=== PATIENT | male | born 1930 | race African-American/Black ===

== ENCOUNTER 2019-10-02 17:27 | Inpatient (IN) | payer BC ==
[~2019-10-02] VITALS: Ht 167.6 cm; Wt 71.3 kg
[~2019-10-02 17:27] MED LIST: ASPI81TA85 PO; CIPR-249 PO; FISH7.5C PO; FOSI40TA3 PO; HYDR12.55 PO; LATA0.0013 OS; NATUSOL OU; OMEP1CAP73 PO; POTA10TA67 PO; TYLE325T5 PO; XALA0.007 OU
[2019-10-02] MEDS ORDERED: CARV25TA PO (17:40)
[2019-10-02] MEDS ORDERED: NITR100C2 PO (17:40)
[2019-10-02] MEDS ORDERED: COMB0.2S OU (17:40)
[2019-10-02 18:24] LABS: BASO % 0.3 % (0.0-1.0); EOS % 0.6 % (0.0-3.0); HEMATOCRIT 41.4 % (42.0-52.0); HEMOGLOBIN 13.3 g/dl (13.5-17.5); LYMPH # 1.1 10^3/uL (1.5-5.0); LYMPH % 16.3 % (24.0-44.0); MEAN CORPUSCULAR HEMOGLOBIN 26.7 pg (27.0-33.0); MEAN CORPUSCULAR HGB CONC 32.1 g/dl (32.0-36.5); MEAN CORPUSCULAR VOLUME 83.1 fl (80.0-96.0); MONO # 0.6 10^3/uL (0.0-0.8); MONO % 8.3 % (0.0-5.0); NEUTROPHILS % 74.1 % (36.0-66.0); PLATELET COUNT, AUTOMATED 143 10^3/uL (150-450); RED BLOOD COUNT 4.98 10^6/uL (4.30-6.10); WHITE BLOOD COUNT 6.8 10^3/uL (4.0-10.0)
--- NOTE | 2019-10-02 18:49 | REP ---
Clinical: Bilateral lower extremity edema. Technique: PA and lateral. Comparison: 08/26/2014. Findings: Mild cardiomegaly with early CHF including indistinct pulmonary vasculature, cephalization, increased interstitial markings, bibasilar atelectasis and small pleural effusions. No pneumothorax. Skeletal structures intact. Impression: Findings compatible with early CHF. Electronically Signed by Jason Mancuso MD 10/02/2019 06:41 P
[2019-10-02 18:54] LABS: ALBUMIN 3.5 GM/DL (3.2-5.2); ALT/SGPT 111 U/L (12-78); BILIRUBIN,DIRECT 0.4 MG/DL (0.0-0.2); BLOOD UREA NITROGEN 15 MG/DL (7-18); CALCIUM LEVEL 8.6 MG/DL (8.8-10.2); CARBON DIOXIDE LEVEL 25 MEQ/L (21-32); CHLORIDE LEVEL 109 MEQ/L (98-107); CK-MB VALUE MASS 3.8 NG/ML (<3.6); CPK CREATINE PHOSPHOKINASE 306 U/L (39-308); CREATININE FOR GFR 1.32 MG/DL (0.70-1.30); GLOMERULAR FILTRATION RATE > 60.0 (>35); GLUCOSE, FASTING 130 MG/DL (70-100); LIPASE 113 U/L (73-393); MB/CK RELATIVE INDEX 1.24 (< OR =4); NT-PRO BNP 7414 PG/ML (<450); POTASSIUM SERUM 4.2 MEQ/L (3.5-5.1); SODIUM LEVEL 140 MEQ/L (136-145); TOTAL PROTEIN 6.8 GM/DL (6.4-8.2); TROPONIN I 0.03 NG/ML (< 0.10)
[2019-10-02] MEDS ORDERED: FUROSEMIDE 40MG/4ML VIAL (J1940) IV ONE (19:15)
[2019-10-02] MEDS ORDERED: ACET500T15 PO (19:41)
[2019-10-02 21:09] LABS: CK-MB VALUE MASS 3.7 NG/ML (<3.6); MB/CK RELATIVE INDEX 1.22 (< OR =4); TROPONIN I 0.03 NG/ML (< 0.10)
--- NOTE | 2019-10-02 21:14 | HPEPDOC ---
General Date of Admission 10/02/19 Date of Service: Oct 02, 2019 Chief Complaint The patient is a 89-year-old male admitted with a reason for visit of Urinary Problem. Source: Patient History of Present Illness 89 year old male presented to the ED with 4 days history of increasing SOB and bilateral leg swelling. He felt initially increasing soreness of both the legs up to the Knee and then noticed the swelling. At the same time he was having SOB moving about his apartment along with orthopnea, some cough on laying down flat and decreased urine output. He was found to have elevated pro BNP, CXR compatable with early CHF. He was admitted for Systolic CHF exacerbation. Home Medications Scheduled Aspirin (Aspir 81) 81 Mg Tab, 81 MG PO DAILY, (Reported) Brimonidine Tartrate/Timolol (Combigan 0.2%-0.5% Eye Drops) 5 Ml Drops, 1 DROP OU BID, (Reported) Carvedilol (Carvedilol) 25 Mg Tablet, 12.5 MG PO BID, (Reported) Fosinopril Sodium (Fosinopril Sodium) 40 Mg Tab, 40 MG PO DAILY, (Reported) Nitrofurantoin Monohyd/M-Cryst (Nitrofurantoin [place]-Mcr 100 mg) 100 Mg Capsule, 100 MG PO BID, (Reported) FOR 7 DAYS, FILLED 09/24 Scheduled PRN Acetaminophen (Acetaminophen) 500 Mg Tablet, 500 MG PO Q6H PRN for PAIN, (Reported) Allergies Coded Allergies: No Known Allergies (Unverified , 10/02/19) Past Medical History Medical History systolic CHF EF of 20% Tricuspid regurgitation Glaucoma with bilateral blindness Hypertension Hyperlipidemia 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 Surgical History Appendectomy Cholecystectomy Family History Mother and Father due to old age, Sister brain tumor Social History * Smoker: Denies Alcohol: occationally Drugs: denies A-FIB/CHADSVASC A-FIB History Current/History of A-Fib/PAF?: No Review of Systems Constitutional: Denies: Chills, Fever, Night Sweats Eyes: Reports: Other (blindness); Denies: Pain, Vision change ENT: Denies: Head Aches, Ear Pain, Dysphagia Skin: Denies: Rash, Lesions, Breakdown Pulmonary: Reports: Dyspnea, Cough Cardiovascular: Reports: Orthopnea, Edema Gastrointestinal: Denies: Nausea, Vomiting, Abdominal Pain, Diarrhea Genitourinary: Reports: Dysuria, Other Symptoms (decreased urination); Denies: Frequency, Incontinence, Retention Hematologic: Denies: Bruising, Bleeding Excessively Musculoskeletal: Reports: Foot Pain, Joint Pain Physical Examination General Exam: Positive: Alert, Cooperative, No Acute Distress Eye Exam: Positive: Conjunctiva & lids normal ENT Exam: Positive: Atraumatic, Mucous membr. moist/pink, Pharynx Normal Neck Exam: Positive: Supple, JVD Chest Exam: Positive: Normal air movement, Other (bilateral basal crackles) Heart Exam: Positive: Rate Normal, Normal S1, Normal S2, Murmurs (soft systolic murmur) Telemetry: Positive: Other Telemetry: (Bigemini rhythm) Abdomen Exam: Positive: Normal bowel sounds, Soft; Negative: Tenderness, Hepatospenomegaly Extremity Exam: Positive: Edema; Negative: Clubbing, Cyanosis Skin Exam: Positive: Nl turgor and temperature; Negative: Breakdown, Lesion Neuro Exam: Positive: Normal Speech, Strength at 5/5 X4 ext, Normal Tone Vital Signs Vital Signs Date Time Temp Pulse Resp B/P (MAP) Pulse Ox O2 Delivery O2 Flow Rate FiO2 10/02/19 20:12 86 96 10/02/19 19:17 179/98 (125) 10/02/19 17:54 97.4 24 Room Air Laboratory Data Labs 24H Laboratory Tests 2 10/02/19 18:10: Immature Granulocyte % (Auto) 0.4, Neutrophils (%) (Auto) 74.1H, Lymphocytes (%) (Auto) 16.3L, Monocytes (%) (Auto) 8.3H, Eosinophils (%) (Auto) 0.6, Basophils (%) (Auto) 0.3, Neutrophils # (Auto) 5.0, Lymphocytes # (Auto) 1.1L, Monocytes # (Auto) 0.6, Eosinophils # (Auto) 0.0, Basophils # (Auto) 0.0, Nucleated Red Blood Cells % (auto) 0.0, Anion Gap 6L, Glomerular Filtration Rate > 60.0, Calcium Level 8.6L, Total Bilirubin 2.0H, Direct Bilirubin 0.4H, Aspartate Amino Transf (AST/SGOT) 31, Alanine Aminotransferase (ALT/SGPT) 111H, Alkaline Phosphatase 78, Total Creatine Kinase 306, Creatine Kinase MB 3.8H, Creatine Kinase MB Relative Index 1.24, Troponin I 0.03, RS-Agu-M-Type Natriuretic Peptide 7414H, Total Protein 6.8, Albumin 3.5, Albumin/Globulin Ratio 1.1, Lipase 113 10/02/19 20:26: CBC/BMP Laboratory Tests 10/02/19 18:10 Assessment/Plan 89 year old male presented to the ED with 4 days history of increasing SOB and bilateral leg swelling. He felt initially increasing soreness of both the legs up to the Knee and then noticed the swelling. At the same time he was having SOB moving about his apartment along with orthopnea, some cough on laying down flat and decreased urine output. He was found to have elevated pro BNP, CXR compatibl e with early CHF. He was admitted for Systolic and diastolic CHF exacerbation. Systolic and Diastolic CHF exacerbation lasix IV , 2 gm sodium diet, fluid restriction 1.5 liters. I/O, daily weights Last echo in 2014 EF was 20%, Grade 3 diastolic dysfunction, moderately severe mitral regurgitation. New Echo ordered. Follows with Dr David. Continue betablocker and ACEI. CKD creatinine at baseline will continue to monitor. Hypertension continue fosinopril at lower dose to allow for aggressive diuresis continue coreg Glaucoma with bilateral blindness. Recent UTI treated with nitrofurantoin today was last day. Plan / VTE VTE Prophylaxis Ordered?: Yes MERCED STRINGER MD Oct 02, 2019 21:14
[2019-10-02 23:43] VITALS: BP 158/102
[2019-10-02] MEDS: CARVedilol 12.5 MG TAB PO SCH (23:43)
[2019-10-03] MEDS ORDERED: FUROSEMIDE 40MG/4ML VIAL (J1940) IV SCH (02:00)
[2019-10-03 04:00] VITALS: BP 150/95
[2019-10-03 04:59] LABS: BASO % 0.3 % (0.0-1.0); EOS % 0.5 % (0.0-3.0); HEMATOCRIT 44.1 % (42.0-52.0); HEMOGLOBIN 14.2 g/dl (13.5-17.5); LYMPH # 1.2 10^3/uL (1.5-5.0); LYMPH % 19.5 % (24.0-44.0); MEAN CORPUSCULAR HEMOGLOBIN 26.5 pg (27.0-33.0); MEAN CORPUSCULAR HGB CONC 32.2 g/dl (32.0-36.5); MEAN CORPUSCULAR VOLUME 82.4 fl (80.0-96.0); MONO # 0.6 10^3/uL (0.0-0.8); MONO % 9.9 % (0.0-5.0); NEUTROPHILS # 4.3 10^3/uL (1.5-8.5); NEUTROPHILS % 69.5 % (36.0-66.0); PLATELET COUNT, AUTOMATED 155 10^3/uL (150-450); RED BLOOD COUNT 5.35 10^6/uL (4.30-6.10); WHITE BLOOD COUNT 6.2 10^3/uL (4.0-10.0)
[2019-10-03 05:20] LABS: BLOOD UREA NITROGEN 15 MG/DL (7-18); CALCIUM LEVEL 8.7 MG/DL (8.8-10.2); CARBON DIOXIDE LEVEL 31 MEQ/L (21-32); CHLORIDE LEVEL 105 MEQ/L (98-107); CREATININE FOR GFR 1.35 MG/DL (0.70-1.30); GLOMERULAR FILTRATION RATE > 60.0 (>35); GLUCOSE, FASTING 97 MG/DL (70-100); POTASSIUM SERUM 3.5 MEQ/L (3.5-5.1); SODIUM LEVEL 143 MEQ/L (136-145)
--- NOTE | 2019-10-03 06:38 | ECGEPIP ---
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
[2019-10-03 08:00] VITALS: BP 150/85
[2019-10-03] MEDS: FOSINOPRIL 20 MG TAB PO SCH (09:00)
[2019-10-03] MEDS: ENOXAPARIN 30MG/0.3ML SYRINGE (J1650 PER 10MG) SC SCH (09:54)
[2019-10-03] MEDS: ASPIRIN 81 MG ENTERIC TAB PO SCH (09:54)
[2019-10-03] MEDS: CARVedilol 12.5 MG TAB PO SCH ×2 (09:54→20:54)
[2019-10-03 12:00] VITALS: BP 118/73
[2019-10-03] MEDS: FUROSEMIDE 40MG/4ML VIAL (J1940) IV SCH (14:29)
[2019-10-03 16:00] VITALS: BP 123/79
--- NOTE | 2019-10-03 19:43 | IPNPDOC ---
Date Seen The patient was seen on 10/03/19. Progress Note SUBJECTIVE: Echo to be done today. Denies increased SOB, -3L as of this AM since midnight, decreased lasix dose. Denies chest pain, n/v/d. OBJECTIVE: VITAL SIGNS: Please see below PHYSICAL EXAMINATION: CONSTITUTIONAL: Legally blind, no acute distress, resting comfortably, AAO x 3 EYES: PERRLA, EOM intact HENT, MOUTH: Normocephalic, atraumatic, moist mucous membranes NECK: SUPPLE, no JVD, no lymphadenopathy, no carotid bruit CV: Regular rate and rhythm, S1S2 normal, no murmurs/rubs/gallops RESPIRATORY: Crackles in bilateral lower lung bond, no rales/rhonchi/wheezes GI: BS positive in 4 quadrants, soft, nontender, nondistended, no rebound or guarding, no organomegaly : Deferred MUSCULOSKELETAL: Normal ROM. No cyanosis, clubbing, swelling, joint deformity, +1 pitting extremity edema INTEGUMENTARY: Intact, no rashes, no lesions, no erythema NEUROLOGIC: Cranial Nerves II-XII are intact, no focal deficits PSYCHIATRIC: Mood and affect are normal CURRENT MEDICATIONS: Please see below LABORATORY DATA: Please see below IMAGING: Echo pending ASSESSMENT: 89 y/o M treated for acute CHF exacerbation. PLAN: 1. Acute CHF exacerbation, type unknown. Echo pending. C/w IV lasix Q12 hrs, 2 gm sodium diet, fluid restriction 1.5 liters, I/O, daily weights. 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 Continue beta scooby and ACEI, tele 2. CKD. Creatinine slightly elevated this AM but not LA NENA. Continue to monitor closely. 3. Hypertension. Stable. C/w fosinopril at lower dose to allow for aggressive d iuresis, coreg 4. Glaucoma with bilateral blindness. Stable. 5. Recent UTI. Treated with nitrofurantoin, 10/02/19 was last day. 6. DVT px. Enoxaparin SC daily. DISPOSITION: Admitted under inpatient status. Plan is discharge back to prior living situation. VS, I&O, 24H, Fishbone Vital Signs/I&O Vital Signs Date Time Temp Pulse Resp B/P (MAP) Pulse Ox O2 Delivery O2 Flow Rate FiO2 10/03/19 16:00 97.6 73 18 123/79 (94) 95 Room Air I&O- Last 24 Hours up to 6 AM 10/03/19 06:00 Intake Total 120 ml Output Total 3175 ml Balance -3055 ml Laboratory Data 24H LABS Laboratory Tests 2 10/02/19 20:26: Total Creatine Kinase 303, Creatine Kinase MB 3.7H, Creatine Kinase MB Relative Index 1.22, Troponin I 0.03 10/02/19 23:20: Methicillin-Resist S.aureus DNA PCR NOT DETECTED 10/03/19 04:43: Immature Granulocyte % (Auto) 0.3, Neutrophils (%) (Auto) 69.5H, Lymphocytes (%) (Auto) 19.5L, Monocytes (%) (Auto) 9.9H, Eosinophils (%) (Auto) 0.5, Basophils (%) (Auto) 0.3, Neutrophils # (Auto) 4.3, Lymphocytes # (Auto) 1.2L, Monocytes # (Auto) 0.6, Eosinophils # (Auto) 0.0, Basophils # (Auto) 0.0, Nucleated Red Blood Cells % (auto) 0.0, Anion Gap 7L, Glomerular Filtration Rate > 60.0, Calcium Level 8.7L, Magnesium Level 2.0 CBC/BMP Laboratory Tests 10/03/19 04:43 Current Medications Current Medications Medications (Trade) Dose Ordered Sig/Erin Route PRN Reason Start Time Stop Time Status Last Admin Dose Admin Aspirin (Ecotrin) 81 mg DAILY PO 10/03/19 09:00 10/03/19 09:54 Carvedilol (COReg) 12.5 mg BID PO 10/02/19 21:00 10/03/19 09:54 Enoxaparin Sodium (Lovenox) 30 mg DAILY SC 10/03/19 09:00 10/03/19 09:54 Fosinopril Sodium (Monopril) 20 mg DAILY PO 10/03/19 09:00 Furosemide (LASIX injection) 40 mg Q12H IV 10/03/19 14:00 10/03/19 14:29 Furosemide (LASIX injection) 40 mg Q8H IV 10/03/19 02:00 10/03/19 08:09 DC 10/03/19 02:18 Home Med (Med Rec Complete!) ASDIRECTED XX 10/02/19 19:45 10/02/19 19:43 DC Allergies Coded Allergies: No Known Allergies (Unverified , 10/02/19) Hilary Navarro MD Oct 03, 2019 19:43
[2019-10-03 20:00] VITALS: BP 122/69
[2019-10-04] VITALS: BP 131/77
[2019-10-04] MEDS: FUROSEMIDE 40MG/4ML VIAL (J1940) IV SCH ×2 (01:20→08:40)
[2019-10-04 04:00] VITALS: BP 137/85
[2019-10-04 06:12] LABS: BASO % 0.4 % (0.0-1.0); EOS # 0.1 10^3/uL (0.0-0.5); EOS % 1.6 % (0.0-3.0); HEMATOCRIT 44.9 % (42.0-52.0); HEMOGLOBIN 14.7 g/dl (13.5-17.5); LYMPH # 1.2 10^3/uL (1.5-5.0); LYMPH % 23.7 % (24.0-44.0); MEAN CORPUSCULAR HEMOGLOBIN 27.2 pg (27.0-33.0); MEAN CORPUSCULAR HGB CONC 32.7 g/dl (32.0-36.5); MONO # 0.6 10^3/uL (0.0-0.8); MONO % 11.8 % (0.0-5.0); NEUTROPHILS # 3.1 10^3/uL (1.5-8.5); NEUTROPHILS % 62.3 % (36.0-66.0); PLATELET COUNT, AUTOMATED 147 10^3/uL (150-450); RED BLOOD COUNT 5.41 10^6/uL (4.30-6.10); WHITE BLOOD COUNT 4.9 10^3/uL (4.0-10.0)
[2019-10-04 06:35] LABS: CALCIUM LEVEL 8.5 MG/DL (8.8-10.2); CREATININE FOR GFR 1.47 MG/DL (0.70-1.30); GLOMERULAR FILTRATION RATE 58.5 (>35); POTASSIUM SERUM 3.4 MEQ/L (3.5-5.1)
[2019-10-04 08:00] VITALS: BP 152/83
[2019-10-04] MEDS ORDERED: POTASSIUM CHLORIDE 10 MEQ SR TABLET PO ONE (08:30)
[2019-10-04] MEDS: ASPIRIN 81 MG ENTERIC TAB PO SCH (08:38)
[2019-10-04] MEDS: FOSINOPRIL 20 MG TAB PO SCH (08:39)
[2019-10-04] MEDS: CARVedilol 12.5 MG TAB PO SCH ×2 (08:39→20:23)
[2019-10-04] MEDS: ENOXAPARIN 30MG/0.3ML SYRINGE (J1650 PER 10MG) SC SCH (08:40)
[2019-10-04] MEDS ORDERED: MIRALAX *UNIT DOSE* 17GM PACKET PO PRN (09:45)
--- NOTE | 2019-10-04 09:48 | ECHO ---
DATE OF STUDY: 10/03/2019 DATE OF : 1930 ACCOUNT #l: [id number] REFERRING PROVIDER: Dr. Bety Fontana PATIENT LOCATION: Room 3223 REASON FOR THE STUDY: Congestive heart failure. 2-D MEASUREMENTS: IVS: 1.3 cm LV: 5.1 cm LVPW: 1.2 cm LA: 4.2 cm Aorta: 3.5 cm IVC: 1.2 cm DOPPLER MEASUREMENTS: Peak velocity across the aortic valve: 1.1 m/s Peak velocity across the LVOT: 0.7 m/s Mitral E: 0.8 Mitral A: 0.5 Ratio: Greater than 1.0 Maximum tricuspid valve velocity: 2.9 m/s 2-D COMMENTS: 1. Mildly increased left ventricular wall thickness with normal left ventricular size, but with a severely depressed global left ventricular systolic function. The estimated ventricular systolic ejection fraction is 30%. 2. Mildly dilated left atrium. Subjectively, the right atrium appeared to be mildly enlarged. Normal right ventricle. 3. The atrial septum appeared to be normal, without evidence of defect or shunt. 4. Normal aortic root. 5. Trace pericardial effusion noted posteriorly at the base of the left ventricle, no evidence of cardiac tamponade. 6. Mildly calcified aortic valve with normal leaflet excursion. Mildly calcified mitral annulus with normal anterior mitral valve leaflet motion. Normal tricuspid valve and pulmonic valve. The proximal pulmonary artery branches were not well visualized. 7. The inferior vena cava was normal in size, central venous pressure is most likely normal. DOPPLER: It detects mild aortic regurgitation, mild mitral regurgitation, and mild to moderate tricuspid regurgitation. The calculated pulmonary artery systolic pressure varies between 40-50 mmHg. Assessment of the left ventricular diastolic function appeared to be normal, but limited. IMPRESSION: 1. Severe global left ventricular systolic dysfunction with diffuse hypokinesis, but preserved left ventricular wall thickness. 2. Aortic valve sclerosis with mild aortic regurgitation, but no aortic stenosis. 3. Mitral annulus calcification with mild mitral regurgitation and a mildly enlarged left atrium. 4. Mild to moderate tricuspid regurgitation with moderate pulmonary hypertension. Subjectively, the right atrium appeared to be mildly enlarged. 5. Trace pericardial effusion was noted posteriorly at the base of the left ventricle, no evidence of cardiac tamponade. This was compared with prior echocardiogram done on 08/23/2014 and at that time LVEF, I estimated it at 20%.
[2019-10-04 10:03] LABS: MAGNESIUM LEVEL 2.1 MG/DL (1.8-2.4); PHOSPHORUS LEVEL 4.5 MG/DL (2.5-4.9)
[2019-10-04 12:00] VITALS: BP 115/77
[2019-10-04 16:00] VITALS: BP 107/54
--- NOTE | 2019-10-04 18:14 | IPNPDOC ---
Date Seen The patient was seen on 10/04/19. Progress Note SUBJECTIVE: Echo showed EF 30 %, slightly increased from last on file. Diuresed 3.9 L/24 hours, additional 1.9 since midnight. Decreased lasix to daily, Cr creeped up. Improved BNP. Denies chest pain, shortness of breath, n/v/d. OBJECTIVE: VITAL SIGNS: Please see below PHYSICAL EXAMINATION: CONSTITUTIONAL: Legally blind, no acute distress, resting comfortably, AAO x 3 EYES: PERRLA, EOM intact HENT, MOUTH: Normocephalic, atraumatic, moist mucous membranes NECK: SUPPLE, no JVD, no lymphadenopathy, no carotid bruit CV: Regular rate and rhythm, S1S2 normal, no murmurs/rubs/gallops RESPIRATORY: Crackles in bilateral lower lung bond are slowly improving, no rales/rhonchi/wheezes GI: BS positive in 4 quadrants, soft, nontender, nondistended, no rebound or guarding, no organomegaly : Deferred MUSCULOSKELETAL: Normal ROM. No cyanosis, clubbing, swelling, joint deformity, +1 pitting extremity edema slightly improved further INTEGUMENTARY: Intact, no rashes, no lesions, no erythema NEUROLOGIC: Cranial Nerves II-XII are intact, no focal deficits PSYCHIATRIC: Mood and affect are normal CURRENT MEDICATIONS: Please see below LABORATORY DATA: Please see below IMAGING: Echo: 1. Mildly increased left ventricular wall thickness with normal left ventricular size, but with a severely depressed global left ventricular systolic function. The estimated ventricular systolic ejection fraction is 30%. 2. Mildly dilated left atrium. Subjectively, the right atrium appeared to be mildly enlarged. Normal right ventricle. 3. The atrial septum appeared to be normal, without evidence of defect or shunt. 4. Normal aortic root. 5. Trace pericardial effusion noted posteriorly at the base of the left ventricle, no evidence of cardiac tamponade. 6. Mildly calcified aortic valve with normal leaflet excursion. Mildly calcified mitral annulus with normal anterior mitral valve leaflet motion. Normal tricuspid valve and pulmonic valve. The proximal pulmonary artery branches were not well visualized. 7. The inferior vena cava was normal in size, central venous pressure is most likely normal. ASSESSMENT: 89 y/o M admitted for acute systolic CHF exacerbation. PLAN: 1. Acute systolic CHF exacerbation. Echo above, EF 30%. BNP decreased to >2000. C/w IV lasix daily, 2 gm sodium diet, fluid restriction 1.5 liters, I/O, daily weights. Continue beta scooby and ACEI, telemetry. Discussed case with Dr. David, no additional suggestions at discharge. 2. LA NENA on CKD. Decreased lasix further today, f/u AM labs. Continue to monitor closely. 3. Hypertension. Stable. C/w ACEi, coreg 4. Glaucoma with bilateral blindness. Stable. 5. DVT px. Enoxaparin SC daily. DISPOSITION: Admitted under inpatient status. Plan is discharge back to prior living situation, possibly 10.05.19. VS, I&O, 24H, Fishbone Vital Signs/I&O Vital Signs Date Time Temp Pulse Resp B/P (MAP) Pulse Ox O2 Delivery O2 Flow Rate FiO2 10/04/19 16:00 97.4 76 17 107/54 (71) 98 Room Air I&O- Last 24 Hours up to 6 AM0 10/04/19 05:59 Intake Total 860 ml Output Total 3125 ml Balance -2265 ml Laboratory Data 24H LABS Laboratory Tests 2 10/04/19 05:36: Immature Granulocyte % (Auto) 0.2, Neutrophils (%) (Auto) 62.3, Lymphocytes (%) (Auto) 23.7L, Monocytes (%) (Auto) 11.8H, Eosinophils (%) (Auto) 1.6, Basophils (%) (Auto) 0.4, Neutrophils # (Auto) 3.1, Lymphocytes # (Auto) 1.2L, Monocytes # (Auto) 0.6, Eosinophils # (Auto) 0.1, Basophils # (Auto) 0.0, Nucleated Red Blood Cells % (auto) 0.0, Anion Gap 7L, Glomerular Filtration Rate 58.5, Calcium Level 8.5L, Phosphorus Level 4.5, Magnesium Level 2.1, LT-Pmt-W-Type Natriuretic Peptide 2967H CBC/BMP Laboratory Tests 10/04/19 05:36 Current Medications Current Medications Medications (Trade) Dose Ordered Sig/Erin Route PRN Reason Start Time Stop Time Status Last Admin Dose Admin Aspirin (Ecotrin) 81 mg DAILY PO 10/03/19 09:00 10/04/19 08:38 Carvedilol (COReg) 12.5 mg BID PO 10/02/19 21:00 10/04/19 08:39 Enoxaparin Sodium (Lovenox) 30 mg DAILY SC 10/03/19 09:00 10/04/19 08:40 Fosinopril Sodium (Monopril) 20 mg DAILY PO 10/03/19 09:00 10/04/19 08:39 Furosemide (LASIX injection) 40 mg DAILY IV 10/04/19 09:00 10/04/19 08:40 Furosemide (LASIX injection) 40 mg Q12H IV 10/03/19 14:00 10/04/19 08:18 DC 10/04/19 01:20 Furosemide (LASIX injection) 40 mg Q8H IV 10/03/19 02:00 10/03/19 08:09 DC 10/03/19 02:18 Home Med (Med Rec Complete!) ASDIRECTED XX 10/02/19 19:45 10/02/19 19:43 DC Polyethylene Glycol (Miralax) 1 pkt DAILYPRN PRN PO CONSTIPATION 10/04/19 09:45 Allergies Coded Allergies: No Known Allergies (Unverified , 10/02/19) Hilary Navarro MD Oct 04, 2019 18:14
[2019-10-04 20:00] VITALS: BP 140/82
[2019-10-05] VITALS: BP 126/68
[2019-10-05 04:00] VITALS: BP 134/81
[2019-10-05 06:00] LABS: BASO % 0.4 % (0.0-1.0); EOS # 0.1 10^3/uL (0.0-0.5); EOS % 1.4 % (0.0-3.0); HEMATOCRIT 44.7 % (42.0-52.0); HEMOGLOBIN 14.8 g/dl (13.5-17.5); LYMPH # 1.5 10^3/uL (1.5-5.0); LYMPH % 25.5 % (24.0-44.0); MEAN CORPUSCULAR HEMOGLOBIN 27.3 pg (27.0-33.0); MEAN CORPUSCULAR HGB CONC 33.1 g/dl (32.0-36.5); MEAN CORPUSCULAR VOLUME 82.3 fl (80.0-96.0); MONO # 0.6 10^3/uL (0.0-0.8); MONO % 10.6 % (0.0-5.0); NEUTROPHILS # 3.5 10^3/uL (1.5-8.5); NEUTROPHILS % 61.9 % (36.0-66.0); PLATELET COUNT, AUTOMATED 142 10^3/uL (150-450); RED BLOOD COUNT 5.43 10^6/uL (4.30-6.10); WHITE BLOOD COUNT 5.7 10^3/uL (4.0-10.0)
[2019-10-05 06:29] LABS: BLOOD UREA NITROGEN 20 MG/DL (7-18); CALCIUM LEVEL 8.5 MG/DL (8.8-10.2); CARBON DIOXIDE LEVEL 33 MEQ/L (21-32); CHLORIDE LEVEL 104 MEQ/L (98-107); CREATININE FOR GFR 1.34 MG/DL (0.70-1.30); GLOMERULAR FILTRATION RATE > 60.0 (>35); GLUCOSE, FASTING 83 MG/DL (70-100); POTASSIUM SERUM 3.8 MEQ/L (3.5-5.1); SODIUM LEVEL 144 MEQ/L (136-145)
[2019-10-05 08:00] VITALS: BP 141/76
[2019-10-05] MEDS ORDERED: FURO40TA2 PO (08:22)
[2019-10-05] MEDS: ASPIRIN 81 MG ENTERIC TAB PO SCH (08:46)
[2019-10-05] MEDS: FOSINOPRIL 20 MG TAB PO SCH (08:46)
[2019-10-05 08:47] VITALS: BP 139/90
[2019-10-05] MEDS: CARVedilol 12.5 MG TAB PO SCH (08:47)
[2019-10-05] MEDS: ENOXAPARIN 30MG/0.3ML SYRINGE (J1650 PER 10MG) SC SCH (08:48)
[2019-10-05] MEDS: FUROSEMIDE 40MG/4ML VIAL (J1940) IV SCH (08:48)
--- NOTE | 2019-10-05 17:48 | DS.PDOC ---
Discharge Summary General Date of Admission Oct 02, 2019 at 20:54 Date of Discharge 10/05/19 Attending Physician: Hilary Navarro MD Discharge Summary HISTORY OF PRESENT ILLNESS: 89 year old male presented to the ED with 4 days history of increasing SOB and bilateral leg swelling. He felt initially increasing soreness of both the legs up to the Knee and then noticed the swelling. At the same time he was having SOB moving about his apartment along with orthopnea, some cough on laying down flat and decreased urine output. He was found to have elevated pro BNP, CXR compatable with early CHF. He was admitted for Systolic CHF exacerbation. HOSPITAL COURSE: The patient continued with aggressive IV diuresis with Lasix during his hospital stay. He was negative 23 liters per day for multiple days. Lower extremity swelling and shortness of breath improved. Echocardiogram done showed ejection fraction of 30%, improved since the last one on file. Case was discussed with his filter worker Dr. David. Creatinine increased slightly during diuresis; however, started to slowly improve. On 10/05/2019 vision was made to discharge home with only new medication being Lasix at 40 mg by mouth daily. He is to follow up closely with his primary care provider in the next 12 weeks and repeat BMP to ensure creatinine has remained stable. Has follow-up with cardiology coming up in the next several months. At the time of discharge the patient denied nausea, vomiting, shortness of breath, chest pain, fevers or chills. REVIEW OF SYSTEMS: Negative except for what is mentioned above. 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 PAST SURGICAL HISTORY: Appendectomy Cholecystectomy FAMILY HISTORY: Mother and Father due to old age, Sister brain tumor SOCIAL HISTORY: * Smoker: Denies Alcohol: occationally Drugs: denies ALLERGIES: Please see below. DISCHARGE MEDICATIONS: Please see below. PHYSICAL EXAMINATION: CONSTITUTIONAL: Legally blind, no acute distress, resting comfortably, AAO x 3 EYES: PERRLA, EOM intact HENT, MOUTH: Normocephalic, atraumatic, moist mucous membranes NECK: SUPPLE, no JVD, no lymphadenopathy, no carotid bruit CV: Regular rate and rhythm, S1S2 normal, no murmurs/rubs/gallops RESPIRATORY: No Crackles in bilateral lower lung bond today, no rales/rhonchi/wheezes GI: BS positive in 4 quadrants, soft, nontender, nondistended, no rebound or guarding, no organomegaly : Deferred MUSCULOSKELETAL: Normal ROM. No cyanosis, clubbing, swelling, joint deformity, non pitting extremity edema slightly improved further INTEGUMENTARY: Intact, no rashes, no lesions, no erythema NEUROLOGIC: Cranial Nerves II-XII are intact, no focal deficits PSYCHIATRIC: Mood and affect are normal CURRENT MEDICATIONS: Please see below LABORATORY DATA: Please see below IMAGING: CXR on admission: Findings compatible with early CHF. Echo: 1. Mildly increased left ventricular wall thickness with normal left ventricular size, but with a severely depressed global left ventricular systolic function. The estimated ventricular systolic ejection fraction is 30%. 2. Mildly dilated left atrium. Subjectively, the right atrium appeared to be mildly enlarged. Normal right ventricle. 3. The atrial septum appeared to be normal, without evidence of defect or shunt. 4. Normal aortic root. 5. Trace pericardial effusion noted posteriorly at the base of the left ventricle, no evidence of cardiac tamponade. 6. Mildly calcified aortic valve with normal leaflet excursion. Mildly calcified mitral annulus with normal anterior mitral valve leaflet motion. Normal tricuspid valve and pulmonic valve. The proximal pulmonary artery branches were not well visualized. 7. The inferior vena cava was normal in size, central venous pressure is most likely normal. ASSESSMENT: 89 y/o M admitted for acute systolic CHF exacerbation. PLAN: 1. Acute systolic CHF exacerbation. Echo above, EF 30%. BNP decreased to >2000. Recommend continue with low sodium diet, beta scooby and ACEI, new med lasix. Discussed case with his filter worker Dr. David, no additional suggestions at discharge. 2. LA NENA on CKD. Improving on low dose lasix. Recommend f/u BMP after discharge by PCP to ensure resolved. Avoid additional nephrotoxic medications. 3. Hypertension. Stable. C/w ACEi, coreg, lasix 4. Glaucoma with bilateral blindness. Stable. DISPOSITION: Discharged home to previous living situation in improved medical condition. TIME SPENT ON DISCHARGE: Greater than 30 minutes. Vital Signs/I&Os Vital Signs Date Time Temp Pulse Resp B/P (MAP) Pulse Ox O2 Delivery O2 Flow Rate FiO2 10/05/19 08:47 80 139/90 10/05/19 08:00 97.4 20 97 Room Air I&O- Last 24 Hours up to 6 AM 10/05/19 06:00 Intake Total 600 ml Output Total 2125 ml Balance -1525 ml Laboratory Data Labs 24H Laboratory Tests 2 10/05/19 05:35: Immature Granulocyte % (Auto) 0.2, Neutrophils (%) (Auto) 61.9, Lymphocytes (%) (Auto) 25.5, Monocytes (%) (Auto) 10.6H, Eosinophils (%) (Auto) 1.4, Basophils (%) (Auto) 0.4, Neutrophils # (Auto) 3.5, Lymphocytes # (Auto) 1.5, Monocytes # (Auto) 0.6, Eosinophils # (Auto) 0.1, Basophils # (Auto) 0.0, Nucleated Red Blood Cells % (auto) 0.0, Anion Gap 7L, Glomerular Filtration Rate > 60.0, Calcium Level 8.5L CBC/BMP Laboratory Tests 10/05/19 05:35 Discharge Medications Scheduled Aspirin (Aspir 81) 81 Mg Tab, 81 MG PO DAILY, (Reported) Brimonidine Tartrate/Timolol (Combigan 0.2%-0.5% Eye Drops) 5 Ml Drops, 1 DROP OU BID, (Reported) Carvedilol (Carvedilol) 25 Mg Tablet, 12.5 MG PO BID, (Reported) Fosinopril Sodium (Fosinopril Sodium) 40 Mg Tab, 40 MG PO DAILY, (Reported) Furosemide (Furosemide) 40 Mg Tablet, 40 MG PO DAILY Scheduled PRN Acetaminophen (Acetaminophen) 500 Mg Tablet, 500 MG PO Q6H PRN for PAIN, (Reported) Allergies Coded Allergies: No Known Allergies (Unverified , 10/02/19) Hilary Navarro MD Oct 05, 2019 17:48
== END 2019-10-05 14:27 | disposition home health service (06) | DRG 194 ==
LOC: M ED 17:27 → M ED INP 20:54 → EEVIPCON 20:54 → ENRESERV 22:25 → M PCU 23:09
PROVIDERS: ADMIT Internal Medicine Nephrology; ATTEND Internal Medicine
DX: I13.0 Hypertensive heart and chronic kidney disease with heart failure and stage 1 through stage 4 chronic kidney disease, or unspecified chronic kidney disease (principal); N17.9 Acute kidney failure, unspecified; I36.1 Nonrheumatic tricuspid (valve) insufficiency; H40.9 Unspecified glaucoma; E78.5 Hyperlipidemia, unspecified; N18.9 Chronic kidney disease, unspecified; H54.8 Legal blindness, as defined in USA; I50.23 Acute on chronic systolic (congestive) heart failure; Z79.82 Long term (current) use of aspirin; Z79.899 Other long term (current) drug therapy

== ENCOUNTER 2021-01-04 14:30 | Inpatient (IN) | payer OTHER, BC ==
[~2021-01-04] VITALS: Ht 167.6 cm; Wt 75.0 kg
[~2021-01-04 14:30] MED LIST changes: +ACET500T15 PO; -ASPI81TA85 PO; +ASPI81TA86 PO; +CARV25TA PO; +COMB0.2S OU; +FURO40TA2 PO; +NITR100C2 PO
[2021-01-04] MEDS: METOPROLOL 5 MG/5 ML VIAL IV SCH ×4 (15:05→15:30)
[2021-01-04] MEDS ORDERED: METOPROLOL TART 25 MG TABLET PO ONE (15:05)
[2021-01-04 15:17] LABS: BASO % 0.4 % (0.0-1.0); EOS % 0.4 % (0.0-3.0); HEMATOCRIT 43.2 % (42.0-52.0); HEMOGLOBIN 14.1 g/dl (13.5-17.5); MEAN CORPUSCULAR HEMOGLOBIN 27.2 pg (27.0-33.0); MEAN CORPUSCULAR HGB CONC 32.6 g/dl (32.0-36.5); MEAN CORPUSCULAR VOLUME 83.2 fl (80.0-96.0); MONO # 0.5 10^3/uL (0.0-0.8); MONO % 6.2 % (2.0-8.0); NEUTROPHILS # 5.8 10^3/uL (1.5-8.5); NEUTROPHILS % 78.7 % (36.0-66.0); PLATELET COUNT, AUTOMATED 154 10^3/uL (150-450); RED BLOOD COUNT 5.19 10^6/uL (4.30-6.10); WHITE BLOOD COUNT 7.4 10^3/uL (4.0-10.0)
[2021-01-04] MEDS ORDERED: NS 500 ML IV ONE (15:35)
--- NOTE | 2021-01-04 15:54 | REP ---
INDICATION: CHEST PAIN. COMPARISON: PA and lateral chest, 10/02/2019. TECHNIQUE: Upright AP portable chest image was obtained. FINDINGS: The lungs are clear. There is cardiomegaly and aortic ectasia consistent with benign essential hypertension. There is calcific vascular disease of the thoracic aorta. IMPRESSION: Findings consistent with hypertension. No evidence of acute cardiopulmonary pathology. <Electronically signed by Bill Gaxiola > 01/04/21 0067
[2021-01-04 15:58] LABS: ALBUMIN 3.3 GM/DL (3.2-5.2); BILIRUBIN,DIRECT 0.3 MG/DL (0.0-0.2); BILIRUBIN,TOTAL 1.6 MG/DL (0.2-1.0); CALCIUM LEVEL 8.6 MG/DL (8.8-10.2); CREATININE FOR GFR 1.73 MG/DL (0.70-1.30); FREE T4 1.09 NG/DL (0.76-1.46); GLOMERULAR FILTRATION RATE 48.3 (>35); THYROID STIMULATING HORMONE 2.53 uIU/ML (0.358-3.740); TOTAL PROTEIN 6.8 GM/DL (6.4-8.2)
[2021-01-04] MEDS ORDERED: AMIODARONE HCL 150 MG in IV 1 EA IV STA (16:21)
--- NOTE | 2021-01-04 17:49 | HPEPDOC ---
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 He reports around noon after eating lunch he began to feel dizzy and diaphoretic, the symptoms lasted less than half an hour. However, he was concerned therefore came for further evaluation. In the emergency department he was noted to be in a flutter with heart rate as high as 140. At the time of his symptoms as well as at this junction, he denies chest pain, shortness of breath, headaches, problems with urination and bowel movements. CODE STATUS was discussed patient wishes to be full code. In the event where he cannot make his own medical decisions he wishes his son to make them for him. PAST MEDICAL HISTORY: 1. Congestive heart 2. BPH 3. Glaucoma 4. Cataract PAST SURGICAL HISTORY: None report SOCIAL HISTORY: Patient denied smoking, drinking, and use of recreational drugs. FAMILY HISTORY: Mother from a brain tumor at the age of 80 ALLERGIES: Please see below. REVIEW OF SYSTEMS: 10 point review of system was negative except for what is noted in the HPI HOME MEDICATIONS: Please see below. PHYSICAL EXAMINATION: General: Lying in bed, no acute distress Head/Neck/Throat: Trachea midline, mucous membranes moist Eyes: Sclera anicteric, PERRLA Thorax: Normal respiratory effort on room air, lungs clear to auscultation bilaterally, no wheezes/rales/rhonchi Cardiovascular: Irregularly irregular, heart rate to 110, normal S1, S2; no S3, S4, rubs/gallops/murmurs Abdomen: Bowel sounds present, soft/nontender/nondistended Genitourinary: No CVA tenderness, no Hernandez in place Musculoskeletal: Moving all extremities, no edema Skin: Warm, dry Neurologic: AAOx3, speech fluent and goal-directed, no focal deficits, grossly intact LABORATORY DATA: See below. IMAGING: Chest x-ray findings noted no acute pathology MICROBIOLOGY: Please see below. ASSESSMENT/PLAN: #Atrial fibrillation/flutter with rapid ventricular response -EKG showed no signs of acute ST/T wave changes. Troponin thus far is negative. -Continue with amiodarone initial bolus 150 over 60 minutes; than 360 over 6 hours, and then 360 over 18 hours. Will d/c if pt has dysrhythmias -Systemic anticoagulation discussed with patient, willing to accept risks. We will start him on Eliquis 2.5 twice daily. #Congestive heart failure -Spoke to Dr. Callahan. He had an echocardiogram with left ventricular ejection fraction of 35% and global hypokinesis, which was done this year. A cardiac cath done sometime in 2015 was benign. -Euvolemic no signs of acute exacerbation at this time. -Going to hold fosinopril for today, if creatinine is stable then we will resume. Continue with carvedilol with holding parameters. -We will hold furosemide 40 mg due to his current blood pressure -i/o and daily weight #Chronic kidney disease -Creatinine in 2019 was 1.3 mg/dL, today it is 1.73 mg/dL, this may just be advancing chronic kidney disease. We will trend creatinine. -Avoid nephrotoxic medications #Hypertension -Presently, patient blood pressure is on the lower end. #BPH -Patient reports taking Flomax. However, this will be done held due to his blood pressure. #DVT prophylaxis -This will be offered by apixaban. Critical time spent 32 minutes. Vital Signs Vital Signs Date Time Temp Pulse Resp B/P (MAP) Pulse Ox O2 Delivery O2 Flow Rate FiO2 01/04/21 14:31 97.8 139 16 99/65 (76) 99 Room Air Laboratory Data Labs 24H Laboratory Tests 2 01/04/21 15:01: Immature Granulocyte % (Auto) 0.3, Neutrophils (%) (Auto) 78.7H, Lymphocytes (%) (Auto) 14.0L, Monocytes (%) (Auto) 6.2, Eosinophils (%) (Auto) 0.4, Basophils (%) (Auto) 0.4, Neutrophils # (Auto) 5.8, Lymphocytes # (Auto) 1.0L, Monocytes # (Auto) 0.5, Eosinophils # (Auto) 0.0, Basophils # (Auto) 0.0, Nucleated Red Blood Cells % (auto) 0.0, Anion Gap 7L, Glomerular Filtration Rate 48.3, Calcium Level 8.6L, Total Bilirubin 1.6H, Direct Bilirubin 0.3H, Aspartate Amino Transf (AST/SGOT) 21, Alanine Aminotransferase (ALT/SGPT) 27, Alkaline Phosphatase 60, [id number]-Type Natriuretic Peptide 5582H, Total Protein 6.8, Albumin 3.3, Albumin/Globulin Ratio 0.9, Lipase 269, Thyroid Stimulating Hormone (TSH) 2.530, Free Thyroxine 1.09 01/04/21 15:11: POC Troponin I (Misc) 0.00 01/04/21 17:15: CBC/BMP Laboratory Tests 01/04/21 15:01 Home Medications Scheduled Aspirin (Aspir 81) 81 Mg Tab, 81 MG PO DAILY Brimonidine Tartrate/Timolol (Combigan 0.2%-0.5% Eye Drops) 5 Ml Drops, 1 DROP OU BID Carvedilol (Carvedilol) 25 Mg Tablet, 12.5 MG PO BID Fosinopril Sodium (Fosinopril Sodium) 40 Mg Tab, 40 MG PO DAILY Furosemide (Furosemide) 40 Mg Tablet, 40 MG PO DAILY Scheduled PRN Acetaminophen (Acetaminophen) 500 Mg Tablet, 500 MG PO Q6H PRN for PAIN Allergies Coded Allergies: No Known Allergies (Unverified , 10/02/19) A-FIB/CHADSVASC A-FIB History Current/History of A-Fib/PAF?: Yes Current PO Anticoag Therapy: Yes TRINITY GILBERT M.D. Jan 04, 2021 17:45
[2021-01-04] MEDS ORDERED: AMIODARONE HCL 360 MG in IV 1 EA IV SCH (18:00)
[2021-01-04 18:15] LABS: RSV AMPLIFICATION NEGATIVE (NEGATIVE)
[2021-01-04] MEDS ORDERED: ACUL0.5S OD (18:39)
[2021-01-04] MEDS ORDERED: SPIR-10 PO (18:39)
[2021-01-04] MEDS ORDERED: OCUF0.25 OD (18:39)
[2021-01-04] MEDS ORDERED: FURO20TA2 PO (18:39)
[2021-01-04] MEDS ORDERED: ASPI81TA26 PO (18:39)
[2021-01-04] MEDS ORDERED: HOME MED LIST COMPLETE! XX SCH (18:45)
[2021-01-04 20:00] VITALS: BP 111/76
[2021-01-04] MEDS: APIXABAN 2.5 MG TAB (ELIQUIS) PO SCH (21:03)
[2021-01-04] MEDS: ASPIRIN 81 MG CHEW TABLET PO SCH (21:10)
[2021-01-04] MEDS: OFLOXACIN 0.3 % (OCUFLOX) OPTH SOL 5ML OD SCH (22:25)
[2021-01-04] MEDS: KETOROLAC 0.5% OPHTH SOLN OD SCH (22:25)
[2021-01-05] VITALS: BP 116/68
[2021-01-05] MEDS: AMIODARONE HCL 360 MG in IV 1 EA IV SCH ×2 (00:19→11:32)
[2021-01-05] MEDS ORDERED: ACETAMINOPHEN TAB 650MG DOSE (2X325MG) PO PRN (02:35)
[2021-01-05] MEDS ORDERED: RAMELTEON 8 MG TAB (ROZEREM) PO PRN (02:35)
[2021-01-05 04:00] VITALS: BP 123/67
[2021-01-05 06:06] LABS: HEMATOCRIT 39.2 % (42.0-52.0); HEMOGLOBIN 12.9 g/dl (13.5-17.5); MEAN CORPUSCULAR HEMOGLOBIN 27.3 pg (27.0-33.0); MEAN CORPUSCULAR HGB CONC 32.9 g/dl (32.0-36.5); MEAN CORPUSCULAR VOLUME 82.9 fl (80.0-96.0); PLATELET COUNT, AUTOMATED 140 10^3/uL (150-450); RED BLOOD COUNT 4.73 10^6/uL (4.30-6.10)
[2021-01-05 06:26] LABS: ALBUMIN 2.9 GM/DL (3.2-5.2); ALT/SGPT 22 U/L (12-78); BILIRUBIN,TOTAL 0.8 MG/DL (0.2-1.0); BLOOD UREA NITROGEN 22 MG/DL (7-18); CALCIUM LEVEL 8.1 MG/DL (8.8-10.2); CARBON DIOXIDE LEVEL 23 MEQ/L (21-32); CHLORIDE LEVEL 112 MEQ/L (98-107); CREATININE FOR GFR 1.34 MG/DL (0.70-1.30); GLOMERULAR FILTRATION RATE > 60.0 (>35); GLUCOSE, FASTING 103 MG/DL (70-100); MAGNESIUM LEVEL 2.2 MG/DL (1.8-2.4); PHOSPHORUS LEVEL 3.7 MG/DL (2.5-4.9); POTASSIUM SERUM 4.3 MEQ/L (3.5-5.1); SODIUM LEVEL 142 MEQ/L (136-145); TOTAL PROTEIN 5.9 GM/DL (6.4-8.2)
[2021-01-05 08:02] VITALS: BP 120/98
[2021-01-05] MEDS: KETOROLAC 0.5% OPHTH SOLN OD SCH ×4 (08:52→20:15)
[2021-01-05] MEDS: APIXABAN 2.5 MG TAB (ELIQUIS) PO SCH (08:53)
[2021-01-05] MEDS: ASPIRIN 81 MG CHEW TABLET PO SCH (08:53)
[2021-01-05] MEDS: OFLOXACIN 0.3 % (OCUFLOX) OPTH SOL 5ML OD SCH ×4 (08:53→20:14)
[2021-01-05] MEDS: CARVedilol 12.5 MG TAB PO SCH ×2 (08:53→20:13)
[2021-01-05] MEDS ORDERED: CARVedilol 12.5 MG TAB PO SCH (09:00)
[2021-01-05] MEDS ORDERED: FLUBLOK(EGG FREE)(QUAD)INFLUENZA VACC 0.5ML SYRINGE 18YRS & OLDER IM ONE (09:00)
--- NOTE | 2021-01-05 10:59 | IPNPDOC ---
Subjective Date Seen The patient was seen on 01/05/21. Subjective Chief Complaint/HPI Patient was seen and examined at bedside this morning. He had no new complaints, and reported feeling well. He denies chest pain, palpitation, sob, abdominal pain, nausea, vomiting, and problems with urination and bowel movements. Other systems 10 point review of system was negative except for what is noted in the subject temi text. Objective Physical Examination Other physical findings Head/Neck/Throat: Trachea midline, mucous membranes moist Eyes: Sclera anicteric, no erythema or discharge appreciated b/l Thorax: Normal respiratory effort on room air, lungs clear to auscultation bilaterally, no wheezes/rales/rhonchi Cardiovascular: Irregularly irregular, heart rate to 110, normal S1, S2; no S3, S4, rubs/gallops/murmurs Abdomen: Bowel sounds present, soft/nontender/nondistended Genitourinary: No CVA tenderness, no Hernandez in place Musculoskeletal: Moving all extremities, no edema Skin: Warm, dry Neurologic: AAOx3, speech fluent and goal-directed, no focal deficits, grossly intact Assessment /Plan Assessment #Atrial fibrillation/flutter with rapid ventricular response -EKG showed no signs of acute ST/T wave changes. Troponin thus far is negative. -On third bag of amio protocol. -systemic Eliquis 2.5 twice daily. #HFrEF -Spoke to Dr. Callahan. He had an echocardiogram with left ventricular ejection fraction of 35% and global hypokinesis, which was done this year. A cardiac cath done sometime in 2016 was benign. -Euvolemic no signs of acute exacerbation at this time. -Going to hold fosinopril, if creatinine is stable then we will resume. Continue with carvedilol with holding parameters. -Hold furosemide 40 mg due renal function. -i/o and daily weight #Acute on chronic kidney disease -Creatinine in 2019 was 1.3 mg/dL, back to baseline. Will monitor for stability. -Avoid nephrotoxic medications #Hypertension -Stable blood pressure. Hold tulio due to renal function. #BPH -Continue with flomax if bp stable. #DVT prophylaxis -This will be offered by apixaban. Plan/VTE VTE Prophylaxis Ordered?: Yes VS, I&O, 24H, Fishbone Vital Signs/I&O Vital Signs Date Time Temp Pulse Resp B/P (MAP) Pulse Ox O2 Delivery O2 Flow Rate FiO2 01/05/21 08:53 63 120/98 01/05/21 08:02 97.6 20 97 Room Air I&O- Last 24 Hours up to 6 AM 01/05/21 06:00 Intake Total 1000 ml Output Total 200 ml Balance 800 ml Laboratory Data 24H LABS Laboratory Tests 2 01/04/21 15:01: Immature Granulocyte % (Auto) 0.3, Neutrophils (%) (Auto) 78.7H, Lymphocytes (%) (Auto) 14.0L, Monocytes (%) (Auto) 6.2, Eosinophils (%) (Auto) 0.4, Basophils (% ) (Auto) 0.4, Neutrophils # (Auto) 5.8, Lymphocytes # (Auto) 1.0L, Monocytes # (Auto) 0.5, Eosinophils # (Auto) 0.0, Basophils # (Auto) 0.0, Nucleated Red Blood Cells % (auto) 0.0, Anion Gap 7L, Glomerular Filtration Rate 48.3, Calcium Level 8.6L, Total Bilirubin 1.6H, Direct Bilirubin 0.3H, Aspartate Amino Transf (AST/SGOT) 21, Alanine Aminotransferase (ALT/SGPT) 27, Alkaline Phosphatase 60, [id number]-Njs-L-Type Natriuretic Peptide 5582H, Total Protein 6.8, Albumin 3.3, Albumin/Globulin Ratio 0.9, Lipase 269, Thyroid Stimulating Hormone (TSH) 2.530, Free Thyroxine 1.09 01/04/21 15:11: POC Troponin I (Misc) 0.00 01/04/21 17:15: Coronavirus (COVID-19)(PCR) NEGATIVE, Influenza Type A (RT-PCR) NEGATIVE, Influenza Type B (RT-PCR) NEGATIVE, Respiratory Syncytial Virus (PCR) NEGATIVE 01/04/21 18:42: Troponin I 0.02 01/04/21 21:20: Troponin I < 0.02 01/05/21 05:26: Nucleated Red Blood Cells % (auto) 0.0, Anion Gap 7L, Glomerular Filtration Rate > 60.0, Calcium Level 8.1L, Phosphorus Level 3.7, Magnesium Level 2.2, Total Bilirubin 0.8, Aspartate Amino Transf (AST/SGOT) 16, Alanine Aminotransferase (ALT/SGPT) 22, Alkaline Phosphatase 51, Total Protein 5.9L, Albumin 2.9L, Albumin/Globulin Ratio 1.0 CBC/BMP Laboratory Tests 01/04/21 15:01 01/05/21 05:26 TRINITY GILBERT M.D. Jan 05, 2021 10:58
[2021-01-05 12:00] VITALS: BP 96/55
--- NOTE | 2021-01-05 13:52 | CR ---
CONSULTATION DATE: 01/04/2021 REFERRING PHYSICIAN: Dr. Curtis Hamilton CONSULTING PHYSICIAN: Dr. Haven Callahan REASON FOR CONSULTATION: Atrial flutter with rapid ventricular response. HISTORY OF PRESENT ILLNESS: Mr. Centeno is previously unknown to me but he is a patient of my partner, Dr. David. He presented to [facility] yesterday after an episode of nausea and dizziness. He tells me that he was in his usual state of health when after a meal suddenly became very nauseated and lightheaded. He sat down and waited about 10 minutes or so and his sensation of nausea and dizziness completely resolved but it was subsequently followed by profound diaphoresis that last about 15 minutes. He originally wanted to call "[phone]" but eventually his girlfriend brought him to the Emergency Room herself. He was found to be in atrial flutter with rapid ventricular response and the decision was made to admit him for further management. He was given a single dose of Metoprolol and then Amiodarone IV. Throughout the night his heart rate was reasonably well controlled, typically below 100 beats per minute, but then this morning with activity, becomes easily tachycardic with a heart rate in the 120's. The patient has been asymptomatic since the admission. He has no environmental dysrhythmia. He also denies any chest pain or excessive shortness of breath on top of his baseline. He reports that in spite of has advanced age and underlying cardiomyopathy, he is very active. He regularly dances with his girlfriend, and he was dancing last weekend. He also exercises on a daily basis. PAST MEDICAL HISTORY: The patient's past medical history is significant for: 1. Non-ischemic cardiomyopathy. He originally was diagnosed in 2014 with presentation with congestive heart failure. He was found to have left ventricular ejection fraction in the neighborhood of 20-25% and cardiac catheterization revealed on obstructive coronary artery disease. The last echocardiogram was performed on August 14, 2020 and again his left ventricular ejection fraction was in the neighborhood of 30-35%, there was mild to moderate mitral insufficiency and mild aortic insufficiency. He was offered a defibrillator but at that point declined. 2. Chronic renal insufficiency stage 3. 3. Hyperlipidemia. 4. History of dilated ascending aorta (3.8 cm based on echo July 2020). 5. Hypertension. 6. Glaucoma with resulting legal blindness. OUTPATIENT MEDICATIONS: 1. Aspirin 81 a day. 2. Coreg 12.5 twice daily. 3. Fosinopril 40 mg daily. 4. Furosemide 20 mg daily. 5. Vitamin D. 6. Spironolactone 25 mg daily. ALLERGIES: No known allergies. SOCIAL HISTORY: The patient lives with his significant other. 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 He never smoked. He does not drink. FAMILY HISTORY: The patient's family history is negative for cardiac events. His mother of cancer. There is a history of glaucoma in his family. SURGICAL HISTORY: The patient's past surgical history is positive for appendectomy. PHYSICAL EXAMINATION: GENERAL APPEARANCE: Mr. Centeno is a delightful 89-year-old man who appears younger than his current age he certainly is alert and oriented and appropriate. VITAL SIGNS: Last set of vitals his blood pressure 120/98, heart rate 63 beats per minute, saturation 97% on room air. But during my exam his heart rate was approximately 120 beats per minute. HEENT: He is almost blind and he is certainly legally blind. NECK: His JVP is not high. LUNGS: Clear, good air movement. HEART: Tachycardia. I do not appreciate any distant gallops or murmurs. ABDOMEN: Soft, nontender. EXTREMITIES: Free of edema. Peripheral pulses are palpable. No atrophic defects. NEUROLOGICAL: is intact. Moves all four extremities. His speech is intact. LABORATORY DATA: Sodium 145, potassium 4.3, BUN 22, creatinine 1.34 (was 1.7 yesterday) and glucose 103. Normal magnesium at 2.2. Normal liver function tests but for mildly reduced albumin at 2.9. CBC reveals hemoglobin 12.9, hematocrit 39, platelet count 140,000 and WBC count 6.0. IMAGING DATA: Chest x-ray that was performed yesterday in the Emergency Room does not reveal any evidence for congestive heart failure or obvious cardiomegaly. There is apparent atheroma in the thoracic aorta. EKG reveals atrial flutter with rapid ventricular response. ASSESSMENT AND PLAN: Mr. Centeno is an 89-year-old man who has a history of non-ischemic cardiomyopathy and known left ventricular systolic function that is severely reduced. Left ventricular ejection fraction was determined to be 30-35% based on the echocardiogram in July 2020. He presented with dizziness, nausea and diaphoresis that lasted for a total of about 20 minutes and on arrival to the Emergency Room he was found to be in atrial flutter with rapid ventricular response. I do not believe that we can reliably conclude that the symptoms correspond to the onset of the arrhythmia but it is certainly possible. So far he has responded quite favorably to the administration of IV Amiodarone, and I believe he can complete the loading IV. I will simultaneously start him on oral Amiodarone and will continue his chronic Carvedilol. Hopefully this will be sufficient to complete reasonable rate control. He was started on anticoagulation with Apixaban 2.5 mg twice daily. Since yesterday his creatinine dropped below 1.5, so I am going to increase the dose to 4.5 mg twice daily. Hopefully this recommendation will complete decent rate control and because he is essentially asymptomatic at this point, he might be able to be discharged tomorrow. Then in the long horizon, if he does not convert to a sinus rhythm with Amiodarone, he can be electively cardioverted after 3-4 weeks of anticoagulation or if the rate control is problematic, we can consider the cardioversion even earlier. He is a patient of Dr. Louis and I will sign him off to his service this coming Tuesday.
[2021-01-05] MEDS ORDERED: ELIQ5TAB PO (14:08)
[2021-01-05] MEDS ORDERED: FOSI10TA PO (14:08)
[2021-01-05] MEDS ORDERED: AMIO200T3 PO (14:08)
[2021-01-05 16:00] VITALS: BP 97/59
--- NOTE | 2021-01-05 16:46 | ECGEPIP ---
[facility] - ED Test Date: 2021-01-04 Pat Name: ANH SHEA Department: Room: [place] [address] Gender: Male [employer] Engineer: RENETTA : 1930 Requested By: Anne Delarosa Order Number: [id number] Reading MD: Anne Delarosa Measurements Intervals Pedro Rate: 139 P: OH: QRS: -15 QRSD: 106 T: 100 QT: 336 QTc: 511 Interpretive Statements Atrial flutter with variable AV block with premature ventricular or aberrantly conducted complexes ivcd Nonspecific T wave abnormality 10/02/19 sinus rhythm Electronically Signed on 01-05-2021 16:46:33 EDT by Anne Delarosa
[2021-01-05 20:00] VITALS: BP 117/74
[2021-01-05] MEDS: APIXABAN 5 MG TAB (ELIQUIS) PO SCH (20:12)
[2021-01-05] MEDS: AMIODARONE 200 MG TAB (PACERONE) PO SCH (20:13)
[2021-01-06] VITALS: BP 111/61
[2021-01-06 04:00] VITALS: BP 119/56
[2021-01-06 05:41] LABS: HEMATOCRIT 36.5 % (42.0-52.0); HEMOGLOBIN 11.9 g/dl (13.5-17.5); MEAN CORPUSCULAR HGB CONC 32.6 g/dl (32.0-36.5); MEAN CORPUSCULAR VOLUME 82.8 fl (80.0-96.0); PLATELET COUNT, AUTOMATED 135 10^3/uL (150-450); RED BLOOD COUNT 4.41 10^6/uL (4.30-6.10); WHITE BLOOD COUNT 6.2 10^3/uL (4.0-10.0)
[2021-01-06 06:18] LABS: BLOOD UREA NITROGEN 18 MG/DL (7-18); CALCIUM LEVEL 8.2 MG/DL (8.8-10.2); CARBON DIOXIDE LEVEL 24 MEQ/L (21-32); CHLORIDE LEVEL 113 MEQ/L (98-107); CREATININE FOR GFR 1.21 MG/DL (0.70-1.30); GLOMERULAR FILTRATION RATE > 60.0 (>35); GLUCOSE, FASTING 80 MG/DL (70-100); MAGNESIUM LEVEL 2.1 MG/DL (1.8-2.4); PHOSPHORUS LEVEL 3.9 MG/DL (2.5-4.9); POTASSIUM SERUM 4.5 MEQ/L (3.5-5.1); SODIUM LEVEL 143 MEQ/L (136-145)
[2021-01-06 08:00] VITALS: BP 129/70
--- NOTE | 2021-01-06 08:13 | IPN ---
PROGRESS NOTE DATE: 01/06/2021 SUBJECTIVE: Mr. Centeno is doing very well. He converted to sinus rhythm which is somewhat surprising to me. EKG this morning revealed indeed sinus rhythm with only nonspecific repolarization abnormalities. He is feeling well and does not have any complaints. OBJECTIVE: VITAL SIGNS: Blood pressure is 119/56, heart rate has been in the 60s and 70s, sinus rhythm. He is afebrile, saturation 98% on room air. Weight is 75 kg. GENERAL: He is alert and oriented, and appropriate. NECK: His JVP is not high. LUNGS: Clear to auscultation with good air movement. HEART: Regular rhythm. I do not appreciate any crystal murmur. ABDOMEN: Soft, nontender. EXTREMITIES: Free of edema. NEUROLOGIC: Intact with exception of his blindness. LABORATORY DATA: CBC: WBC count is 6.2, hemoglobin 11.9, hematocrit 36.5, platelet count 135,000. Basic metabolic panel: Sodium 143, potassium is 4.5, BUN 18, creatinine 1.2 and glucose is 80. ASSESSMENT AND PLAN: Mr. Centeno is an 89-year-old man who has known nonischemic cardiomyopathy with baseline ejection fraction in the neighborhood of 30 to 35%. He presented with atrial flutter with rapid ventricular response. The duration of the arrhythmia is not completely clear and the reason for ER presentation was prolonged episode of dizziness, nausea and profound diaphoresis that lasted about 15 or 20 minutes. It is reasonable to suspect that this represented the onset of the arrhythmia. Somewhat surprisingly to me he converted to sinus rhythm. At this point, I would continue amiodarone at current 200 mg twice a day and anticoagulation on discharge. I would also continue his remaining medications. I do believe that brief course of amiodarone is in order. I will arrange for an outpatient with Dr. David next week who has been following him up chronically. Otherwise, as far as congestive heart failure is concerned, he appears to be reasonably well-compensated. Unfortunately, due to his blindness, his activity is somewhat is somewhat limited but he claims that he has been dancing every weekend and does so without difficulty. The discussion about defibrillator was done with him on an outpatient basis and at that point he refused. I will leave it to Dr. David to address this question again.
--- NOTE | 2021-01-06 08:35 | DS.PDOC ---
Discharge Summary General Date of Admission Jan 04, 2021 at 17:27 Date of Discharge 01/06/21 Discharge Summary DISCHARGE DIAGNOSES: 1. Atrial fibrillation/flutter 2. HFrEF COMPLICATIONS/CHIEF COMPLAINT: A-Fib W Rapid Ventricular Response. HOSPITAL COURSE: Mr. Centeno, is a 89-year-old male with a history of nonischemic cardiomyopathy, CKD, hyperlipidemia, dilated ascending aorta, hypertension, and glaucoma resulting in legal blindness. He presented to the hospital with diaphoresis and dizziness. He was noted to be in atrial fibrillation/flutter. He was treated with IV amiodarone and evaluated by the cardiology team. It was recommended for him to be systemically anticoagulated on apixaban 5 mg twice daily, and to continue oral amiodarone. An echocardiogram during this hospitalization was not done as it was done recently with his primary ore fielder Dr. David. Of note, the risks and benefits of systemic anticoagulation was explained to the patient which she is willing to accept. Although, he is legally blind he reports having great ambulation and not fallen before in the past. He was willing to accept the risks including bleeding into the brain and possible . Of note, his blood pressure was low normal. Therefore his KRISS was decreased from 40 mg to 10 mg. His spironolactone has been discontinued. He was instructed to check his blood pressure while taking his KRISS, furosemide, and carvedilol. He was also asked to check his heart rate while taking amiodarone as well as carvedilol. He was instructed on when these should be held. He is encouraged to follow-up with his ore fielder for further management. He was also asked to keep a log of his blood pressure medication so his antihypertensives can be adjusted accordingly. He was explained the risks of being hypotensive, hypertensive, and having uncontrolled heart rates. He was explained that his ascending aortic aneurysm needs close monitoring, which he understood the risks of if he did not. He will need to follow-up with Dr. David and his primary care physician upon discharge within 5 to 10 days. Of note, at the time of discharge patient was back in sinus rhythm. Also, PFS worked with patient to ensure that he would be able to obtain his medications. He reported no issues for paying for his medications DISCHARGE MEDICATIONS: Please see below. ALLERGIES: Please see below. PHYSICAL EXAMINATION ON DISCHARGE: General: Lying in bed, no acute distress Head/Neck/Throat: Trachea midline, mucous membranes moist Eyes: Sclera anicteric, no erythema or discharge appreciated bilaterally Thorax: Normal respiratory effort on room air, lungs clear to auscultation bilaterally, no wheezes/rales/rhonchi Cardiovascular: Normal rate, regular rhythm, normal S1, S2; no S3, S4, ru bs/gallops/murmurs Abdomen: Bowel sounds present, soft/nontender/nondistended Genitourinary: No CVA tenderness, no Hernandez in place Musculoskeletal: Moving all extremities, no edema Skin: Warm, dry Neurologic: AAOx3, speech fluent and goal-directed, no focal deficits, grossly intact LABORATORY DATA: Please see below. IMAGING: CXR IMPRESSION: Findings consistent with hypertension. No evidence of acute cardiopulmonary pathology. TIME SPENT ON DISCHARGE: 25 minutes. Vital Signs/I&Os Vital Signs Date Time Temp Pulse Resp B/P (MAP) Pulse Ox O2 Delivery O2 Flow Rate FiO2 01/06/21 04:00 97.6 70 18 119/56 (77) 98 Room Air I&O- Last 24 Hours up to 6 AM 01/06/21 06:00 Intake Total 787 ml Output Total 825 ml Balance -38 ml Laboratory Data Labs 24H Laboratory Tests 2 01/06/21 05:12: Nucleated Red Blood Cells % (auto) 0.0, Anion Gap 6L, Glomerular Filtration Rate > 60.0, Calcium Level 8.2L, Phosphorus Level 3.9, Magnesium Level 2.1 CBC/BMP Laboratory Tests 01/06/21 05:12 Discharge Medications Scheduled Amiodarone HCl (Amiodarone HCl) 200 Mg Tablet, 200 MG PO BID Apixaban (Eliquis) 5 Mg Tablet, 5 MG PO BID Aspirin (Aspirin EC) 81 Mg Tablet.dr, 81 MG PO DAILY, (Reported) Carvedilol (Carvedilol) 25 Mg Tablet, 12.5 MG PO BID, (Reported) Fosinopril Sodium (Fosinopril Sodium) 10 Mg Tablet, 1 TAB PO DAILY Hold for low blood pressure Furosemide (Furosemide) 20 Mg Tablet, 20 MG PO Q2D, (Reported) Hold if blood pressure is low Ketorolac Tromethamine (Acular) 0.5% 5ML Drops, 1 DROP OD QID, (Reported) START THREE DAYS BEFORE SURGERY Ofloxacin (Ocuflox) 0.3% 5ML Drops, 1 DROP OD QID, (Reported) START THREE DAYS PRIOR TO SURGERY Allergies Coded Allergies: No Known Allergies (Unverified , 10/02/19) TRINITY GILBERT M.D. Jan 06, 2021 08:29
[2021-01-06] MEDS: AMIODARONE 200 MG TAB (PACERONE) PO SCH (08:59)
[2021-01-06] MEDS: ASPIRIN 81 MG CHEW TABLET PO SCH (08:59)
[2021-01-06] MEDS: APIXABAN 5 MG TAB (ELIQUIS) PO SCH (08:59)
[2021-01-06 09:00] VITALS: BP 129/70
[2021-01-06] MEDS: OFLOXACIN 0.3 % (OCUFLOX) OPTH SOL 5ML OD SCH ×2 (09:00→12:56)
[2021-01-06] MEDS: KETOROLAC 0.5% OPHTH SOLN OD SCH ×2 (09:00→12:56)
[2021-01-06] MEDS: CARVedilol 12.5 MG TAB PO SCH (09:00)
[2021-01-06 12:00] VITALS: BP 108/60
--- NOTE | 2021-01-08 22:10 | ECGEPIP ---
[facility] Test Date: 2021-01-06 Pat Name: ANH SHEA Department: Room: [place] [address] Gender: Male Rn Dialysis: dale : 1930 Requested By: Haven Callahan Order Number: [id number] Reading MD: Antonio David Measurements Intervals [place] Rate: 75 P: 19 VT: 180 QRS: -36 QRSD: 106 T: 121 QT: 438 QTc: 489 Interpretive Statements Normal sinus rhythm Left axis deviation LEFT ANTERIOR FASCICULAR BLOCK Nonspecific T wave abnormality Last tracing on 01/04/21 at 14:59. Atrial Flutter at 139 bpm was noted Electronically Signed on 01-08-2021 22:10:00 EDT by Antonio David
== END 2021-01-06 15:31 | disposition home or self-care (01) | DRG 309 ==
LOC: M ED 14:30 → M ED INP 17:27 → CANRESERV 18:24 → ENRESERV 18:24 → M PCU 19:33
PROVIDERS: ADMIT Internal Medicine; ATTEND Internal Medicine
DX: I48.91 Unspecified atrial fibrillation (principal); I13.0 Hypertensive heart and chronic kidney disease with heart failure and stage 1 through stage 4 chronic kidney disease, or unspecified chronic kidney disease; I50.22 Chronic systolic (congestive) heart failure; N17.9 Acute kidney failure, unspecified; N40.0 Benign prostatic hyperplasia without lower urinary tract symptoms; H40.9 Unspecified glaucoma; Z79.82 Long term (current) use of aspirin; Z79.899 Other long term (current) drug therapy; Z20.822 Contact with and (suspected) exposure to COVID-19; N18.30 Chronic kidney disease, stage 3 unspecified; Z90.49 Acquired absence of other specified parts of digestive tract; I42.8 Other cardiomyopathies